=== PATIENT | male | born 1995 | race African-American/Black ===

== ENCOUNTER 2016-05-13 20:37 | Emergency (ER) | payer OTHER ==
[~2016-05-13] VITALS: Ht 177.8 cm; Wt 103.2 kg
[2016-05-13 22:01] VITALS: BP 126/76
[2016-05-13] MEDS ORDERED: ACETAMINOPHEN500 MG PO (22:09)
== END 2016-05-13 22:12 ==
LOC: EME 20:37
DX: S63.290A Dislocation of distal interphalangeal joint of right index finger, initial encounter (principal); X58.XXXA Exposure to other specified factors, initial encounter
CPT/HCPCS: 73140; 99281; 99284